=== PATIENT | female | born 1970 | race Caucasian/White ===

== ENCOUNTER 2022-09-30 08:32 | Emergency (ER) | payer BC, MEDICAID ==
[~2022-09-30] VITALS: Ht 170.2 cm; Wt 58.0 kg
[~2022-09-30 08:32] MED LIST: ADV50100 INH; ALBU18HF2 IH; COL100C PO; FERR325T28 PO; TRAZODONE 50 MG PO; VITAMIN D WEEKLY SQ; XANAX PRN
--- NOTE | 2022-09-30 09:10 | NUR ---
Placed a sling on R UE.
[2022-09-30] MEDS ORDERED: ondansetron 4mg rapidly disintigrating tab PO ONE (09:55)
[2022-09-30] MEDS ORDERED: HYDROcodone/acetaminophen 5mg/325mg tablet PO ONE (09:55)
[2022-09-30] MEDS ORDERED: HYDR-3965 PO (10:41)
[2022-09-30] MEDS ORDERED: ONDA4TAB12 PO (10:41)
[2022-09-30 10:53] VITALS: BP 148/96
== END 2022-09-30 10:55 | disposition home or self-care (01) ==
LOC: ER 08:33
DX: S42.001A Fracture of unspecified part of right clavicle, initial encounter for closed fracture (principal); X58.XXXA Exposure to other specified factors, initial encounter; Y93.89 Activity, other specified; Y92.89 Other specified places as the place of occurrence of the external cause; Y99.8 Other external cause status
CPT/HCPCS: 73030; 99283; A4565

== ENCOUNTER 2023-05-25 12:18 | Emergency (ER) | payer BC, MEDICAID ==
[~2023-05-25] VITALS: Ht 167.6 cm; Wt 80.0 kg
[~2023-05-25 12:18] MED LIST changes: +ONDA4TAB12 PO
[2023-05-25 12:59] VITALS: BP 129/90
== END 2023-05-25 15:51 | disposition home or self-care (01) ==
LOC: ER 12:18
DX: R60.0 Localized edema (principal); F17.200 Nicotine dependence, unspecified, uncomplicated; K21.9 Gastro-esophageal reflux disease without esophagitis; J45.909 Unspecified asthma, uncomplicated; F41.9 Anxiety disorder, unspecified; Z88.5 Allergy status to narcotic agent; Z88.8 Allergy status to other drugs, medicaments and biological substances; Z79.899 Other long term (current) drug therapy
CPT/HCPCS: 93971; 99284

== ENCOUNTER 2025-03-22 13:14 | Outpatient (CLI) | payer MEDICAID ==
[~2025-03-22 13:14] MED LIST changes: +ONDA-243 PO; -ONDA4TAB12 PO
--- NOTE | 2025-03-22 14:49 | RADIOLOGY REPORT ---
EXAM: MR MRI LOWER EXTREMITY LEFT INDICATION: Pain, plantar fibromatosis TECHNIQUE: Multiplanar and multisequence MR imaging of the left ankle was performed in the absence of gadolinium contrast. COMPARISON: None available at the time of dictation. FINDINGS: [MEDIAL ANKLE]: Intact posterior tibialis, flexor hallucis longus, and flexor digitorum tendons.. Int act deltoid ligament. Intact spring ligament complex. [LOW LATERAL ANKLE]: Irregularity of the anterior talofibular ligament which may be compatible with p rior injury (series 2, image 12). Postsurgical change with low T1/T2 signal likely compatible with fi brosis along the peroneal tendon transfer /postsurgical changes primarily at the malleolar tip infram alleolar segment (series 2, image 16). Distal peroneal brevis tendon is intact. Peroneal longus is i ntact. Thickening of the peroneal retinaculum likely postsurgical and/or sequelae of prior injury (2 -10). [HIGH LATERAL ANKLE]: Intact anterior and posterior inferior tibiofibular ligaments. [ANTERIOR ANKLE]: Intact anterior tibialis, extensor digitorum longus, and extensor hallucis longus t endons. [POSTERIOR ANKLE]: No tibiotalar or subtalar joint effusion. Normal sinus Tarsi. Normal plantar fasci a. Normal Achilles tendon. No retrocalcaneal bursitis. Indeterminate possible small amount of edema e xtending along the inferior extensor retinaculum into the sinus tarsi adjacent to the interosseous ta localcaneal ligament (5-18) [MIDFOOT]: Normal. [BONES]: No acute fracture, osseous contusion, or aggressive osseous lesion. No abnormal osteitis. Coelho ture tract along the distal fibula. [MUSCLES]: Normal. [NEUROVASCULAR]: Normal tarsal tunnel [OTHER]: None IMPRESSION: 1. Postsurgical change with low T1/T2 signal likely compatible with fibrosis along the peroneal tendo n transfer /postsurgical changes primarily at the malleolar tip inframalleolar segment. 2. Irregularity of the anterior talofibular ligament which may be compatible with prior injury. 3. Indeterminate possible small amount of edema extending along the inferior extensor retinaculum int o the sinus tarsi adjacent to the interosseous talocalcaneal ligament. Correlate for developing sinus tarsi syndrome.
== END 2025-03-22 23:59 | disposition home or self-care (01) ==
LOC: MRI02 13:14
PROVIDERS: ATTEND Podiatrist Foot & Ankle Surgery
DX: M25.472 Effusion, left ankle (principal); M72.2 Plantar fascial fibromatosis; Z98.890 Other specified postprocedural states
CPT/HCPCS: 73721

== ENCOUNTER → 2025-10-31 | Day surgery (SDC) | payer MEDICAID ==
[2025-10-28 10:56] LABS: MEAN PLATELET VOLUME 7.8 FL (7.4-10.4); PRE OP HEMATOCRIT 42.6 % (35.0-45.0); PRE OP HEMOGLOBIN 14.8 g/dL (12.0-16.0); PRE OP PLATELET COUNT 236 X10'3 (140-440); PRE OP WHITE BLOOD COUNT 7.0 10'3 (4.8-10.8); RED CELL DISTRIBUTION WIDTH 14.0 % (11.5-14.5)
[2025-10-28 11:09] LABS: CREATININE 0.47 MG/DL (0.40-0.90); PRE OP ALT 76 U/L (30-65); PRE OP ANION GAP 8 (8-16); PRE OP AST 98 U/L (10-37); PRE OP BILIRUB, TOTAL 1.1 MG/DL (0.0-1.0); PRE OP GLUCOSE 96 MG/DL (70-104); PRE OP SODIUM 137 MMOL/L (135-145); TOTAL CARBON DIOXIDE 33.5 MMOL/L (24-32); eGFR > 90 ML/MIN
[2025-10-28 11:34] LABS: PRE OP POTASSIUM 3.1 MMOL/L (3.4-5.1)
[2025-10-31] VITALS (7 sets, daily range): BP systolic 104–131; BP diastolic 58–90; PULSE 79–98; RESP 14–18; TEMP 97.6; O2SAT 93–99
[~2025-10-31] VITALS: Ht 170.2 cm; Wt 59.8 kg
[~2025-10-31] MED LIST changes: -ADV50100 INH; -ALBU18HF2 IH; +ALEN70TA78 PO; +BUPIVAcaine 2.5mg/ml inj 50ml vial (contains preservative) ONE; -COL100C PO; -FERR325T28 PO; +GABA-1405 PO; +GABA-530 PO; -ONDA-243 PO; +ROPIVAcaine 0.5% (5mg/ml) 30ml vial ONE; -TRAZODONE 50 MG PO; -VITAMIN D WEEKLY SQ; -XANAX PRN; +acetaminophen 1,000mg/100ml IV 100 ML IV PRN; +bacitracin 15gm ointment TP ONE; +cloNIDine hcl/PF 100mcg/ml inj ONE; +dexamethasone sod phosphate 4mg/ml inj. ONE; +ePHEDrine 50MG/ML INJ. ONE; +enalaprilat 1.25mg/ml 2ml vial IV PRN; +fentaNYL/PF 50MCG/1 ML 2ML syringe IV ONE; +fentaNYL/PF 50MCG/1 ML 2ML syringe IV PRN; +fentaNYL/PF 50MCG/1 ML 2ML syringe ONE; +ketorolac trometh 30MG/ML vial 30 MG/ML VIAL IV ONE; +labetalol 20mg/4ml (5mg/ml) syringe IV PRN; +midazolam 1 mg/ML 2ml injection ONE; +ondansetron/PF 4mg/2ml inj IV PRN; +ondansetron/PF 4mg/2ml inj ONE; +propofol inj 20 ML IV ONE; +ringers solution, lacted 1,000 ML IV SCH
[2025-10-31] MEDS: ringers solution, lacted 1,000 ML IV SCH (13:47)
[2025-10-31] MEDS: ceFAZolin 1GM/D5W- ADD-VANTAGE 50 ML IV ONE (13:50)
[2025-10-31 15:12] LABS: ISTAT ANION GAP 12 (8-12); ISTAT BUN < 3 mg/dL (7-18); ISTAT CL 101 mmol/L (99-107); ISTAT CREATININE 0.6 mg/dL (0.6-1.1); ISTAT GLUCOSE 96 mg/dL (70-104); ISTAT HGB 15.0 g/dl (12.0-16.0); ISTAT Hct 44 %PCV (35-45); ISTAT IONIZED CALCIUM 1.09 mmol/L (1.03-1.32); ISTAT K 3.5 mmol/L (3.5-5.1); ISTAT NA 138 mmol/L (135-145); ISTAT TOTAL CO2 25 mmol/L (24-32); ISTAT eGFR > 90 ML/MIN; POC BUN/CREATININE RATIO 5.0 (6.6-38.0)
[2025-10-31] MEDS: scopolamine 1MG/72H patch 1 PATCH PATCH.TD.3 TD ONE (16:07)
--- NOTE | 2025-10-31 19:01 | OPERATIVE REPORT ---
DATE OF SURGERY: 10/31/2025 DICTATING PHYSICIAN: Bill Rey DPM PREOPERATIVE DIAGNOSIS: Foot drop. POSTOPERATIVE DIAGNOSIS: Foot drop. PROCEDURES: * Posterior tibial tendon transfer, left * Common peroneal nerve release, left SURGEON: Napoleon Phillips DPM BIBLICAL LANGUAGES PROFESSOR: Bill Rey DPM, PGY4 fellow. Assistance was utilized throughout the procedure in order to decrease tourniquet time and aid with retraction. ANESTHESIA: Dr. Rosado. ESTIMATED BLOOD LOSS: Less than 5 mL. HEMOSTASIS: Electrocautery and a thigh tourniquet at 300 mmHg. COMPLICATIONS: None. INDICATIONS: This patient had presented to our office with complaints of steppage gait and foot drop and has failed conservative measures as well as bracing. She has also complained of paresthesias along the course of the common peroneal nerve and she had elected to proceed with surgical intervention at this time. All risks, benefits, and alternatives were explained and there were no guarantees given. DESCRIPTION OF PROCEDURE: The patient was brought to the operating room and placed in the supine position with the contralateral SCD on the nonoperative extremity. A regional block was performed by anesthesia about the popliteal region and general anesthesia then occurred. The left lower extremity was prepped and draped in the usual sterile fashion and was exsanguinated and the tourniquet was inflated to 300 mmHg. Attention was directed toward the proximal lateral aspect of the left lower extremity where a curvilinear incision was made along the course of the fibular neck in an oblique fashion. Dissection was deepened through subcutaneous tissues taking care to cautery all superficial bleeders and protect all permanent neuro vasculature. The subcutaneous tissue was mobilized and an incision was made into the crural fascia. This was released exposing the underlying common peroneal nerve, which was dissected distally to its bifurcation and all fascial planes were released along this. The peroneal musculature and muscle belly was mobilized from the underlying released fascia in order to decompress the nerve and once adequate decompression was reached, the incision was copiously irrigated and closed in layers consisting of #3-0 Vicryl for subcutaneous tissue and 3-0 nylon in a horizontal mattress type fashion for skin. Attention was directed toward the proximal medial aspect of the left foot where a linear oblique incision was made along the course of the posterior tibial tendon. Dissection was deepened through subcutaneous tissues and tributaries of the medial marginal vein were cauterized as necessary. A periosteal incision was then made at the level of the navicular tuberosity and the posterior tibial tendon insertion. This was dissected off of the underlying bone, freeing any adjacent attachments, taking care to keep intact the spring ligament. An additional incision was made about 10 cm proximal to the superior aspect of the calcaneus just on the posterior face of the tibia where a 4 cm linear incision was made. Again, dissection was deepened through the subcutaneous tissues and all superficial bleeders were cauterized. The deep pro fascia was incised and blunt dissection was then commenced toward the posterior aspect of the tibia where the posterior tibial muscle belly was isolated and utilizing a Ragnell retractor, the distally identified and dissected posterior tibial tendon was pulled through the proximal incision. An additional incision was made about 6 cm lateral and 2-3 cm inferior to the previous slightly lateral to the anterior tibial crest. Dissection was again deepened through subcutaneous tissues taking care to cauterize all superficial bleeders. The extensor retinaculum was incised and the dissection interval commenced between the extensor hallucis longus and tibialis anterior tendon. The neurovascular bundle was retracted medially and a Rere was utilized to perforate the interosseous membrane. A Brandon uterine forcep was passed laterally along the posterior aspect of the tibial face toward the proximal medial incision and the posterior tibial tendon was retrieved. This was whipstitched with 0 Vicryl suture and utilizing fluoroscopic guidance, an incision was made overlying the intermediate cuneiform. This was about 3-4 cm in length. Dissection was deepened through subcutaneous tissues and all superficial bleeders were cauterized. Deep fascia was incised and the dissection interval commenced between the extensor hallucis brevis muscle belly and the extensor digitorum brevis muscle belly. The neurovascular bundle was retracted medially and a periosteal incision was made to bone. This was reflected in the medial and lateral aspect of the underlying intermediate cuneiform. Utilizing fluoroscopic guidance, a 6 mm reamer was utilized to create a drill hole in the central aspect of the intermediate cuneiform. Utilizing a Taz needle, the whipstitched posterior tibial tendon was passed through the drill hole through the bottom of the foot. Under maximum tension and dorsiflexion, taking care to keep the ankle joint at neutral with slight valgus attitude of the hindfoot, a 4.75 bioabsorbable Ossio anchor was implanted into this drill hole. Tension was noted to be excellent. The Vicryl suture was cut flush with the distal aspect of the glabrous junction at the plantar skin. All incisions were copiously irrigated and closed in layers consisting of 3-0 Vicryl for subcutaneous tissue and 3-0 nylon in a horizontal mattress type fashion for skin. Dressings were applied consisting of bacitracin, Adaptic, 4 x 4s, Webril, a Plaster AO splint, and Chad bandage. The patient was taken to PACU with vital signs stable throughout the procedure and vital signs stable going into PACU. She will follow up in the postoperative period in the office of Dr. Napoleon Phillips. MARYAN Pastor DPM TID: [id number] RECEIPT: [id number] /[facility]
== END | disposition home or self-care (01) ==
LOC: PAS 12:00
PROVIDERS: ATTEND Podiatrist Foot & Ankle Surgery
DX: M21.372 Foot drop, left foot (principal); G89.18 Other acute postprocedural pain; G47.33 Obstructive sleep apnea (adult) (pediatric); M81.0 Age-related osteoporosis without current pathological fracture; Z87.891 Personal history of nicotine dependence; Z79.899 Other long term (current) drug therapy; Z90.89 Acquired absence of other organs; Z98.51 Tubal ligation status; Z90.710 Acquired absence of both cervix and uterus; Z98.890 Other specified postprocedural states; Z88.1 Allergy status to other antibiotic agents; Z88.5 Allergy status to narcotic agent; Z88.8 Allergy status to other drugs, medicaments and biological substances
CPT/HCPCS: 27691; 36415; 64445; 64447; 64708; 73620; 80047; 80053; 85025; A6223; C1713; J0690; J0735; J1100; J2250; J2405; J2704; J2795; J3010; J3490; J7030; J7120; Z7506; Z7508; Z7512; 76000; A4618; A6253; A6449; A7000